=== PATIENT | male | born 1965 | race Caucasian/White ===

== ENCOUNTER 2019-02-02 07:59 | Day surgery (SDC) | payer MEDICAID ==
[~2019-02-02] VITALS: Ht 188 cm; Wt 115.9 kg
[~2019-02-02 07:59] MED LIST: LISI10TA7 PO; METO50 PO; SIMV-260 PO; SODIUM CHLORIDE 0.9% 1,000 ML IV ONE
[2019-02-02] MEDS ORDERED: PROPOFOL 1% 20 ML VIAL IVP ONE (08:00)
[2019-02-02] MEDS ORDERED: LIDOCAINE/PF 2% 5 ML VIAL INJ ONE (08:00)
[2019-02-02] MEDS: SODIUM CHLORIDE 0.9% 1,000 ML IV ONE (08:32)
== END 2019-02-02 10:30 | disposition home or self-care (01) ==
LOC: SURGERY 07:59
PROVIDERS: ATTEND Internal Medicine Gastroenterology
DX: Z12.11 Encounter for screening for malignant neoplasm of colon (principal); K64.8 Other hemorrhoids; K57.30 Diverticulosis of large intestine without perforation or abscess without bleeding; E78.00 Pure hypercholesterolemia, unspecified; I10 Essential (primary) hypertension; Z98.890 Other specified postprocedural states
CPT/HCPCS: 45378; J2704; J3490; J7030